=== PATIENT | female | born 2000 | race Caucasian/White ===

== ENCOUNTER 2022-07-04 18:09 | Emergency (ER) | payer OTHER, SELFPAY ==
[2022-07-04 18:19] VITALS: BP 125/85; PULSE 72; RESP 18; TEMP 37.2; O2SAT 97; BMI 26.6
--- NOTE | 2022-07-04 20:29 | ED.WOUNDLAC ---
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 Pt is up to date on her tdap. Pt has a 3 cm laceration but has full range of motion and no neuromuscular defects. Wound is well approximated. She has a small 1 cm nonfull thickness laceration on the tip of the 4th digit as well. No foreign bodies noted. Pt otherwise is in good health and has no other complaints. Related Data Home Medications Medication Instructions Recorded Confirmed No Known Home Medications 07/04/22 07/04/22 Allergies Allergy/AdvReac Type Severity Reaction Status Date / Time No Known Drug Allergies Allergy Verified 07/04/22 18:19 Review of Systems Status of ROS: Reports: 6 or more systems reviewed and unremarkable except as noted in History and below Exam Narrative: Exam Narrative: EXAM GENERAL: Patient appears comfortable and well. EYES: No scleral icterus. ENT: Tympanic membranes and oropharynx normal. THYROID: no thyroid nodules or thyromegaly. LYMPH: No supraclavicular or cervical lymphadenopathy. SKIN: 3 cm laceration on the posterior third digit right hand. 1 partial skin tear noted on the distal 4th digit. EXT: No dependent lower extremity pedal edema. HEART: Regular rate and rhythm with no murmurs, rubs, or gallops. LUNGS: Clear to auscultation bilaterally with no crackles or wheezes. ABD: Soft, non tender, non distended. PSYCH: Good eye contact, speech is not pressured. Const: Vital Signs, click to edit/add: Vital Signs - 24 hr 07/04/22 18:19 Temperature 99.0 F Pulse Rate [Right Pulse Oximeter] 72 Respiratory Rate 18 Blood Pressure [Ri ght Upper Arm] 125/85 Pulse Oximetry 97 Oxygen Delivery Me thod Room Air Course Course Hospital Course: Pt seen and examined. Wounds cleaned. 3 cm laceration anesthatized with 1% lidocaine. Wound closed with 5 ethylon sutures. Wounds both dressed and would care instructions given. Vital Signs Vital signs: Initial Vital Signs Temperature 99.0 F 07/04/22 18:19 Temperature Source Temporal Artery Scan 07/04/22 18:19 Pulse Rate 72 07/04/22 18:19 Respiratory Rate 18 07/04/22 18:19 Blood Pressure 125/85 07/04/22 18:19 Blood Pressure Mean 98 07/04/22 18:19 Blood Pressure Position Sitting 07/04/22 18:19 Pulse Oximetry 97 07/04/22 18:19 Oxygen Delivery Method 07/04/22 18:19 Vital Signs Temperature 99.0 F 07/04/22 18:19 Pulse Rate 72 07/04/22 18:19 Respiratory Rate 18 07/04/22 18:19 Blood Pressure 125/85 07/04/22 18:19 Pulse Oximetry 97 07/04/22 18:19 Oxygen Delivery Method 07/04/22 18:19 Temperature 99.0 F 07/04/22 18:19 Pulse Rate 72 07/04/22 18:19 Respiratory Rate 18 07/04/22 18:19 Blood Pressure 125/85 07/04/22 18:19 Pulse Oximetry 97 07/04/22 18:19 Oxygen Delivery Method 07/04/22 18:19 MDM - Wound/Laceration MDM Narrative Medical decision making narrative: Pt presents with laceration. Wounds cleaned. Laceration closed. Pt's wounds dressed. Tdap up to date. Care instuctions given. Differential Diagnosis Differential diagnosis: Likely laceration, abrasion and avulsion of skin Discharge Plan Discharge Clinical Impression: Laceration Patient Disposition: Home, Self-Care Condition: Stable Instructions: Laceration (ED) Additional Instructions: Sutures out in 1 week Activity Level: No Restrictions Discharge Diet: Regular Prescriptions: No Action No Known Home Medications Stand Alone Forms: MyHealth Info Instructions
[2022-07-04 21:15] VITALS: BP 118/78; PULSE 78; RESP 18; TEMP 37; O2SAT 97
[2022-07-04] MEDS: lidocaine HCL 2 % MULTIDOSE 20 ML VIAL 3 ML INJECTION (21:51)
[2022-07-04 21:52] VITALS: BP 118/78; PULSE 78; RESP 18; TEMP 37
== END 2022-07-04 21:53 | disposition home or self-care (01) ==
PROVIDERS: Emergency Provider Internal Medicine
DX: S61.212A Laceration without foreign body of right middle finger without damage to nail, initial encounter (principal); W31.1XXA Contact with metalworking machines, initial encounter
CPT/HCPCS: 12002; 99283

== ENCOUNTER 2023-02-16 12:19 | Outpatient (CLI) | payer OTHER, SELFPAY ==
[2023-02-16 14:20] LABS: Clue Cells No Clue Cells Seen (None Seen); Trichomonas No Trichomonas Seen (None Seen); Yeast No Yeast Seen (None Seen)
== END 2023-02-16 12:20 | disposition home or self-care (01) ==
LOC: FBOREF 12:19
PROVIDERS: Visit Provider Family Medicine
DX: N89.8 Other specified noninflammatory disorders of vagina (principal)
CPT/HCPCS: 87210